=== PATIENT | male | born 1940 | race Caucasian/White ===

== ENCOUNTER 2018-02-20 09:49 | Emergency (ER) | payer MEDICARE ==
[2018-02-20] MEDS ORDERED: predniSONE 20 MG TAB ONE (10:40)
[2018-02-20] MEDS ORDERED: diphenhydrAMINE 50 MG/ML VIAL ONE (10:41)
[2018-02-20] MEDS ORDERED: Famotidine 20 MG TAB ONE (10:41)
== END 2018-02-20 11:45 | disposition home or self-care (01) ==
LOC: ERS 09:49
DX: T78.40XA Allergy, unspecified, initial encounter (principal); I25.2 Old myocardial infarction; Z79.899 Other long term (current) drug therapy; Z79.82 Long term (current) use of aspirin; Z79.84 Long term (current) use of oral hypoglycemic drugs
CPT/HCPCS: 96372; J1200; J7506

== ENCOUNTER 2018-08-29 17:13 | Inpatient (IN) | payer MEDICARE ==
[2018-08-29 19:01] LABS: #Basophils 0.1 thou/uL (0.0-0.2); #Eosinphils 0.1 thou/uL (0.0-0.7); #Lymphocytes 1.3 thou/uL (1.20-3.40); #Monocytes 0.8 thou/uL (0.11-0.59); #Neutrophils 14.6 thou/uL (1.40-6.50); %Basophils 0.4 % (0.0-1.0); %Eosinophils 0.4 % (0.0-10.0); %Lymphocytes 7.6 % (21.0-51.0); %Monocytes 4.7 % (0.0-10.0); %Neutrophils 86.9 % (42.0-75.0); Hemoglobin 14.5 g/dL (14.0-18.0); Mean Corpuscular HGB CONC 33.3 g/dL (32.0-36.0); Mean Corpuscular Hemoglobin 33.3 pg (27.0-31.0); Mean Corpuscular Volume 99.9 fL (78.0-98.0); Mean Platelet Volume 8.2 fL (7.4-10.4); Platelet Count 154 thou/uL (130-400); RBC Distribution Width 12.1 % (11.5-14.5); Red Blood Cell (RBC) Count 4.35 mill/uL (4.70-6.10); White Blood Cell (WBC) Count 16.8 thou/uL (4.8-10.8)
--- NOTE | 2018-08-29 19:02 | RAD ---
RIGHT HIP TWO VIEW 08/29/18 HISTORY: Pain. Fall. COMPARISON: None. FINDINGS: There appears to be a fracture through the iliac wing. There appears to be a transversely oriented fr acture through the acetabulum. Dense vascular calcifications. IMPRESSION: Fracture of the right iliac wing through the acetabulum. CT may be beneficial to evaluate the columns involved. POS: [facility]
--- NOTE | 2018-08-29 19:04 | RAD ---
PELVIS ONE VIEW: 08/29/18 HISTORY: Pain. COMPARISON: None. FINDINGS: There is a fracture of the acetabulum. There is possibly a fracture of the right inferior pubic shabbir s and superior pubic ramus. A fracture through the right iliac wing is present. IMPRESSION: Likely a both column right hip fracture vs anterior column posterior hemitransverse. POS: [facility]
--- NOTE | 2018-08-29 19:42 | RAD ---
CHEST ONE VIEW 08/29/18 HISTORY: Preop. COMPARISON: Radiograph 07/10/10. FINDINGS: Lungs are clear. No pneumothorax or effusion. The cardiac silhouette and mediastinal contours are sim ilar. Single lead defibrillator is in place. IMPRESSION: No acute intrathoracic abnormality. Bilateral rotator cuff arthropathy. POS: [facility]
[2018-08-29 19:48] LABS: ALT (SGPT) 21 U/L (8-55); AST (SGOT) 29 U/L (5-34); Albumin 4.2 g/dL (3.4-4.8); Alkaline Phosphatase 76 U/L (40-150); Anion Gap 14 mmol/L (10-20); BUN (Urea Nitrogen) 21 mg/dL (8.4-25.7); Bilirubin, Total 1.2 mg/dL (0.2-1.2); Calc. Creatinine Clearance 0 mL/min (70-130); Calcium 10.2 mg/dL (7.8-10.44); Carbon Dioxide 26 mmol/L (23-31); Chloride 101 mmol/L (98-107); Estimated GFR-MDRD 46; Globulin 3.1 g/dL (2.4-3.5); Glucose 169 mg/dL (83-110); Potassium 4.3 mmol/L (3.5-5.1); Protein, Total 7.3 g/dL (5.8-8.1); Sodium 137 mmol/L (136-145)
[2018-08-29] MEDS ORDERED: hydrALAZINE 20 MG/ML VIAL SLOW IVP PRN (20:38)
[2018-08-29] MEDS ORDERED: Dextrose 50% Abboject 50 ML SYRINGE SLOW IVP PRN (20:38)
[2018-08-29] MEDS ORDERED: Dextrose 5% in Water 1,000 ML IV PRN (20:38)
[2018-08-29] MEDS ORDERED: Ondansetron PF 4 MG/2 ML Vial IVP PRN (20:38)
[2018-08-29] MEDS ORDERED: Morphine 4 MG/ML VIAL SLOW IVP PRN ×2 (20:38)
[2018-08-29] MEDS ORDERED: Ondansetron ODT 4 MG TAB PO PRN (20:38)
[2018-08-29] MEDS ORDERED: Ibuprofen 200 MG TAB PO SCH (20:45)
[2018-08-29] MEDS ORDERED: traMADol HCl 50 MG TAB PO PRN (20:45)
[2018-08-29] MEDS ORDERED: traMADol HCl 50 MG TAB PO SCH (20:45)
[2018-08-29] MEDS ORDERED: Acetaminophen 500 MG TAB PO SCH (20:45)
--- NOTE | 2018-08-29 20:55 | CT ---
CT PELVIS WITHOUT CONTRAST: 08/29/18 HISTORY: Fall. Pain. COMPARISON: Radiograph same day. FINDINGS: Large right pelvic sidewall hematoma. The left obturator ring is intact. The right anterior SI joint has subtle widening. No crescent fracture of the ileum. The sacrum is without fracture. No diastasis of the pubic symphysis. There is severe degenerative disc space narrowing at L5-S1. There is a fracture of the right acetabul um seen to the anterior column with a posterior hemitransverse component. Fracture extends from the r ight pubic root to the right inferior pubic ramus. The right inferior pubic ramus fracture is a segme ntal fracture. No femoral head fracture, femoral neck fracture or intertrochanteric fracture. There is a small fract ure fragment on the posterior inferior acetabulum near the inferior transverse ligament. IMPRESSION: 1. Right anterior column and posterior hemitransverse acetabular fracture with right superior pu bic root fracture and a segmental right inferior pubic ramus fracture which is nondisplaced. Large p elvic sidewall hematoma on the right. 2. Very subtle widening of the anterior right SI joint superiorly. No crescent fracture of the i leum. POS: [facility]
[2018-08-29] MEDS ORDERED: Ibuprofen 200 MG TAB ONE (21:24)
[2018-08-29] MEDS ORDERED: traMADol HCl 50 MG TAB ONE (21:24)
[2018-08-29] MEDS ORDERED: Famotidine 20 MG TAB ONE (21:24)
[2018-08-29 21:28] LABS: Phosphorus 2.8 mg/dL (2.3-4.7)
[2018-08-29] MEDS: Famotidine 20 MG TAB PO SCH (22:37)
[2018-08-29] MEDS: Senokot S 8.6-50 MG TAB PO SCH (22:38)
[2018-08-29 22:45] VITALS: BMI 25.1
[2018-08-30] MEDS ORDERED: Sodium Chloride 0.9% 1,000 ML IV SCH ×2 (00:01→08:19)
--- NOTE | 2018-08-30 00:25 | HP ---
REQUESTING PHYSICIAN: Dr. Arzate. CONSULT: Orthopedic Surgery, Dr. Gloria. 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 The patient denies any dizziness, chest pain , shortness of breath prior to incident. The patient also denies hitting his head or losing consciousness. The patient states his only pain is right hip pain and sustained abrasion to the right knee and right elbow. The patient and his family reports that he is very active and has not had any recent illnesses. The patient denies any recent cough, cold, chills, or fevers. The patient presented to the emergency room and was found to have a right iliac wing fracture and acetabular fracture with possible pubic ramus fracture. Orthopedics was also consulted and recommended a CT of the pelvis and plan to take the patient to the OR tomorrow morning. PAST MEDICAL HISTORY: Type 2 diabetes, myocardial infarction, coronary artery disease. PAST SURGICAL HISTORY: Right ankle repair, single lead pacemaker, and defibrillator. SOCIAL HISTORY: Denies alcohol use, denies drug use, denies history of smoking. The patient lives at home with his . ALLERGIES: PENICILLIN AND CLINDAMYCIN. REVIEW OF SYSTEMS: A 10-point review of systems is negative unless otherwise stated in the above HPI. PHYSICAL EXAMINATION: VITAL SIGNS: Blood pressure 175/92, pulse 72, respirations 16, temperature 98.9 , and SpO2 97% on room air. GENERAL: The patient is awake, alert, in no distress, lying supine in the emergency room bed. HEENT: Head is normocephalic and atraumatic. Pupils are equal and reactive at 3 mm bilateral. NECK: With normal range of motion, no JVD, trachea midline. HEART: Regular rate and rhythm, 3/5 systolic murmur. No pedal edema. LUNGS: Chest is symmetrical, no wheezing, rales, or rhonchi. No respiratory distress. Equal and clear breath sounds bilaterally. ABDOMEN: Soft, nontender, nondistended, positive bowel sounds. MUSCULOSKELETAL: Strength 5/5 in all extremities, neurovascularly intact x4. Abrasion on right knee. Abrasion on right elbow. Normal range of motion. 2+ pedal pulses bilateral. NEUROLOGIC: The patient is awake, alert, oriented to person, place, time, and event. GCS 15. LABORATORY DATA: WBC 16.8, RBC 4.35, hemoglobin 14.5, hematocrit 43.5, and platelets 154. Sodium 137, potassium 4.3, chloride 101, CO2 of 26, BUN 21, creatinine 1.48, estimated GFR 46, and glucose 169. Calcium 10.2. Total bilirubin 1.2, AST 29, ALT 21, alkaline phosphatase 76. Troponin less than 0.010. Total protein 7.3, albumin 4.2. DIAGNOSTICS: A 12-lead EKG, normal sinus rhythm. No ST-segment changes. Normal axis. Possible left atrial enlargement. Pelvis x-ray, impression; fracture of acetabulum and possible fracture of right superior and inferior pubic rami. Hip film, fracture of right iliac wing. Chest x-ray, impression; no acute intrathoracic abnormality. IMPRESSION: 1. Mechanical fall from approximately 2 to 3 feet high. 2. Right iliac wing fracture. 3. Right acetabular fracture. 4. History of coronary artery disease. 5. History of diabetes mellitus. PLAN: We will admit the patient to surgical ortho floor. The patient will be on bedrest overnight. The patient will be n.p.o. after midnight. The plan is for Dr. Gloria to take the patient to the OR for repair of pelvic fracture in the morning. We will discontinue the patient's metformin and place the patient on a mild sliding scale. We will place the patient on a pain regimen and bowel regimen. We will also place a PT/OT consult for tomorrow after surgery. We will also place on rehab screen. The plan has been discussed with Dr. Stephens. Job ID: [id number] [facility]
[2018-08-30] MEDS: traMADol HCl 50 MG TAB PO SCH ×4 (03:47→22:03)
[2018-08-30] MEDS: Ibuprofen 200 MG TAB PO SCH ×3 (03:48→22:04)
[2018-08-30] MEDS: Acetaminophen 500 MG TAB PO SCH ×4 (03:48→22:04)
[2018-08-30 05:46] LABS: #Basophils 0.1 thou/uL (0.0-0.2); #Eosinphils 0.3 thou/uL (0.0-0.7); #Lymphocytes 2.3 thou/uL (1.20-3.40); #Monocytes 1.2 thou/uL (0.11-0.59); #Neutrophils 6.8 thou/uL (1.40-6.50); %Basophils 0.8 % (0.0-1.0); %Eosinophils 2.7 % (0.0-10.0); %Lymphocytes 21.5 % (21.0-51.0); %Monocytes 11.1 % (0.0-10.0); %Neutrophils 63.8 % (42.0-75.0); Hemoglobin 12.6 g/dL (14.0-18.0); Mean Corpuscular HGB CONC 34.2 g/dL (32.0-36.0); Mean Corpuscular Hemoglobin 34.2 pg (27.0-31.0); Mean Corpuscular Volume 99.9 fL (78.0-98.0); Mean Platelet Volume 8.1 fL (7.4-10.4); Platelet Count 117 thou/uL (130-400); Platelet Morphology Comment Appears Decreased; Red Blood Cell (RBC) Count 3.69 mill/uL (4.70-6.10); White Blood Cell (WBC) Count 10.6 thou/uL (4.8-10.8)
[2018-08-30 05:51] LABS: ALT (SGPT) 17 U/L (8-55); AST (SGOT) 21 U/L (5-34); Albumin 3.5 g/dL (3.4-4.8); Alkaline Phosphatase 56 U/L (40-150); Anion Gap 11 mmol/L (10-20); BUN (Urea Nitrogen) 20 mg/dL (8.4-25.7); Bilirubin, Total 1.3 mg/dL (0.2-1.2); Calc. Creatinine Clearance 51 mL/min (70-130); Calcium 9.1 mg/dL (7.8-10.44); Carbon Dioxide 27 mmol/L (23-31); Chloride 100 mmol/L (98-107); Estimated GFR-MDRD 54; Globulin 2.4 g/dL (2.4-3.5); Glucose 124 mg/dL (83-110); Magnesium 1.6 mg/dL (1.6-2.6); Phosphorus 3.6 mg/dL (2.3-4.7); Potassium 3.9 mmol/L (3.5-5.1); Protein, Total 5.9 g/dL (5.8-8.1); Sodium 134 mmol/L (136-145)
[2018-08-30] MEDS ORDERED: Potassium Phosphate 15 MMOL in Sodium Chloride 0.9% 250 ML 250 ML IVPB SCH (07:00)
[2018-08-30] MEDS ORDERED: Magnesium 2 GM/50 ML 2 GM in Premix Bag 1 BAG IVPB SCH (07:00)
[2018-08-30] MEDS: Senokot S 8.6-50 MG TAB PO SCH ×2 (09:54→22:03)
[2018-08-30] MEDS: Famotidine 20 MG TAB PO SCH ×2 (09:55→22:04)
[2018-08-30] MEDS: Polyethylene Glycol 3350 17 GM Packet PO SCH ×2 (09:55→10:02)
[2018-08-30] MEDS ORDERED: Carvedilol 3.125 MG TAB PO SCH (10:15)
[2018-08-30] MEDS ORDERED: Potassium Chloride 10 MEQ TAB PO SCH (10:15)
--- NOTE | 2018-08-30 10:15 | PRG ---
DATE OF SERVICE: 08/30/2018 SUBJECTIVE: The patient was seen this morning, sitting up in bed with no acute signs of distress. He reports that Dr. Gloria with Orthopedic surgery had recently come to see the patient and reported he was non OP management. He reports pain is well controlled and he is voiding without difficulties. Denies nausea, vomiting, and diarrhea. He has not yet worked with Physical or Occupational Therapy. He has no other complaints at this time. OBJECTIVE: VITAL SIGNS: Temperature 97.6, pulse 70, respirations 16, oxygen saturation 95% on room air, blood pressure 117/73. GENERAL: Well-appearing elderly male sitting up in bed with no signs of acute distress. PULMONARY: Equal chest rise and fall. Clear breath sounds bilaterally. No signs of acute respiratory distress. CARDIAC: Regular rate and rhythm. No murmurs, gallops, rubs. GI: Abdomen is soft, nontender, nondistended. EXTREMITIES: 2+ pulses in all extremities. No significant swelling noted. Gross motor and sensation intact times all 4 extremities. LABORATORY FINDINGS: White count 10.6, hemoglobin 12.6, hematocrit 36.9, platelets 117. Sodium 134, potassium 3.9, chloride 100, carbon dioxide 27, BUN 20, creatinine 1.28, glucose 124, phos 3.6, magnesium 1.6. DIAGNOSTIC FINDINGS: There are no new diagnostic findings to report. ASSESSMENT: 1. Status post mechanical fall off a trailer. 2. Right iliac wing fracture. 3. Right acetabular fracture. 4. Acute traumatic pain. 5. History of diabetes. 6. Myocardial infarction, status post coronary artery bypass grafting. 7. Coronary artery disease. 8. Pacemaker and defibrillator placement. PLAN: The patient is non-operative from Ortho. He is to work with physical and occupational therapy today and he is nonweightbearing on the right lower extremity and will likely need placement in acute rehab. The patient is amenable to this. We will stop IV fluids today and he will receive a diabetic diet. Lovenox will be started tomorrow. We will start on home medications today, but we will hold lisinopril and we will start home Lasix tomorrow, which he receives every other day. We have restarted carvedilol with hold parameters. The patient will be ready for discharge when he is tolerating a diet, urinating without difficulty, able to work with Physical therapy. He will likely need to go to rehab. Job ID: [id number]
--- NOTE | 2018-08-30 12:42 | CON ---
DATE OF CONSULTATION: CHIEF COMPLAINT: Right hip pain. HISTORY OF PRESENT ILLNESS: Mr. Pastor is a 78-year-old male, who was injured yesterday. 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 He lost his balance, falling several feet off the trailer, landing on his right side. He had immediate pain in the hip. He was able to arise using the trailer for support. He ambulated a small amount, but had extensive pain in the hip and was unable to continue on. He was taken to the emergency department. He was found to have a right acetabular fracture with iliac wing fracture. He has been admitted overnight. He has had pain control. CT scan has been completed. He is n.p.o. currently. PAST MEDICAL HISTORY: Coronary artery disease, type 2 diabetes, history of myocardial infarction. PAST SURGICAL HISTORY: Pacemaker placement and defibrillator placement as well as coronary artery bypass graft and also ankle fracture repair. SOCIAL HISTORY: The patient denies tobacco, alcohol, or drug use. He lives independently with his . ALLERGIES: TO PENICILLIN AND CLINDAMYCIN. REVIEW OF SYSTEMS: Positive for right hip pain. Otherwise, negative 10-point review of systems. IMAGES: X-rays of the right hip as well as CT scan are reviewed. These demonstrate an anterior column acetabulum fracture with extension into the iliac wing. There is essentially no displacement of the acetabular component, very slight displacement of the iliac wing. This is a complex fracture pattern. PHYSICAL EXAMINATION: VITAL SIGNS: Temperature is 97.6, pulse is 70, respiratory rate is 16, oxygen saturation 95%, blood pressure 117/73. GENERAL: He is alert and oriented, in no apparent distress. RESPIRATORY: Breathing comfortably. HEENT: Normocephalic and atraumatic. ABDOMEN: Soft, nontender, nondistended. MUSCULOSKELETAL: The patient has a small abrasion of the right elbow and right knee. Otherwise, his skin is intact. He is able to flex and extend the foot and ankle. He has a palpable dorsalis pedis pulse. He does have pain with hip motion which is limited. Equal leg lengths. IMPRESSION: Right acetabular fracture, anterior column. This is nondisplaced. PLAN: At this point, I think the patient will best be treated with nonoperative care. He can mobilize with the physical therapist, toe-touch weightbearing on the right leg. He should have pain control as well as DVT prophylaxis. He will need placement and would like to go to a [facility] swing bed if possible. I would like to re-x-ray his pelvis in 1 week to ensure that he has had no further change in alignment or significant displacement. This could be done as an outpatient. Job ID: [id number]
[2018-08-30] MEDS: HumaLOG 300 UNITS/3 ML VIAL SC PRN (16:54)
[2018-08-30] MEDS: Atorvastatin Calcium 10 MG TAB PO SCH (22:04)
[2018-08-31] MEDS: traMADol HCl 50 MG TAB PO SCH (04:33)
[2018-08-31] MEDS: Acetaminophen 500 MG TAB PO SCH ×4 (04:34→22:14)
[2018-08-31] MEDS: Ibuprofen 200 MG TAB PO SCH ×3 (04:34→20:21)
[2018-08-31 05:02] LABS: #Basophils 0.1 thou/uL (0.0-0.2); #Eosinphils 0.5 thou/uL (0.0-0.7); #Lymphocytes 2.3 thou/uL (1.20-3.40); #Monocytes 0.9 thou/uL (0.11-0.59); #Neutrophils 6.1 thou/uL (1.40-6.50); %Basophils 0.5 % (0.0-1.0); %Eosinophils 4.9 % (0.0-10.0); %Lymphocytes 23.6 % (21.0-51.0); %Monocytes 9.3 % (0.0-10.0); %Neutrophils 61.8 % (42.0-75.0); Hemoglobin 12.3 g/dL (14.0-18.0); Mean Corpuscular HGB CONC 34.6 g/dL (32.0-36.0); Mean Corpuscular Hemoglobin 34.1 pg (27.0-31.0); Mean Corpuscular Volume 98.6 fL (78.0-98.0); Mean Platelet Volume 8.3 fL (7.4-10.4); Platelet Count 115 thou/uL (130-400); Red Blood Cell (RBC) Count 3.61 mill/uL (4.70-6.10); White Blood Cell (WBC) Count 9.9 thou/uL (4.8-10.8)
[2018-08-31 05:17] LABS: Anion Gap 11 mmol/L (10-20); BUN (Urea Nitrogen) 17 mg/dL (8.4-25.7); Calc. Creatinine Clearance 56 mL/min (70-130); Calcium 8.7 mg/dL (7.8-10.44); Carbon Dioxide 26 mmol/L (23-31); Chloride 103 mmol/L (98-107); Estimated GFR-MDRD 61; Glucose 110 mg/dL (83-110); Magnesium 1.9 mg/dL (1.6-2.6); Phosphorus 3.3 mg/dL (2.3-4.7); Sodium 136 mmol/L (136-145)
--- NOTE | 2018-08-31 09:43 | PRG ---
DATE OF SERVICE: 08/31/2018 SUBJECTIVE: The patient was seen this morning, sitting up in bed and in good spirits. He was getting ready to have his breakfast. He reported he slept well overnight and pain is well controlled. Tolerating his diet. Ambulated to and from the bathroom twice yesterday with physical therapy. Reported initially having more pain on first walking attempt, but that the pain has improved since that time. He was seen by Orthopedic Surgery today, who has requested additional x-rays of his pelvis for stability. He denies nausea, vomiting, or diarrhea. OBJECTIVE: VITAL SIGNS: Temperature 98.8, pulse 72, respirations 16, oxygen saturation 95% on room air, and blood pressure 137/76. GENERAL: Well-appearing male, sitting up in bed, having breakfast with no signs of acute distress. PULMONARY: Equal chest rise and fall. Clear breath sounds bilaterally. No signs of acute respiratory distress. CARDIAC: Regular rate and rhythm. No murmurs, gallops, or rubs. Gastrointestinal: Abdomen is soft, nontender, and nondistended. EXTREMITIES: 2+ pulses in all extremities. No significant swelling noted. Gross motor and sensation intact in all 4 extremities. LABORATORY FINDINGS: White count 9.9, hemoglobin 12.3, hematocrit 35.6, and platelets 115. Sodium 136, potassium 4.0, chloride 103, carbon dioxide 26, BUN 17, creatinine 1.16, glucose 110, phosphorus 3.3, and magnesium 1.8. DIAGNOSTIC FINDINGS: There are no new diagnostic findings to report. ASSESSMENT: 1. Status post mechanical fall off a trailer. 2. Right iliac wing fracture. 3. Right acetabular fracture. 4. Acute traumatic pain. 5. History of diabetes. 6. Myocardial infarction, status post bypass, status post coronary artery bypass grafting, coronary artery disease, pacemaker, and defibrillator placement. PLAN: The patient to have x-rays of the pelvis per the request of Orthopedic Surgery to check for stability. We will continue current pain regimen as well as diet. Restarted Lasix today as well as carvedilol. We will continue to hold lisinopril as the patient does not needed at this time with his current vital signs. We will also replace phosphorus today. He will continue to receive physical and occupational therapy and will likely need to go to a rehab facility. We will start working on placement at this time. The patient will be discussed with Dr. Leroy after this dictation. Job ID: [id number]
[2018-08-31] MEDS: Senokot S 8.6-50 MG TAB PO SCH ×2 (10:07→20:21)
[2018-08-31] MEDS: Polyethylene Glycol 3350 17 GM Packet PO SCH (10:07)
[2018-08-31] MEDS: Carvedilol 3.125 MG TAB PO SCH (10:08)
[2018-08-31] MEDS: Furosemide 20 MG TAB PO SCH (10:08)
[2018-08-31] MEDS: Famotidine 20 MG TAB PO SCH ×2 (10:08→20:21)
[2018-08-31] MEDS: Potassium Chloride 10 MEQ TAB PO SCH (10:09)
[2018-08-31] MEDS: traMADol HCl 50 MG TAB PO PRN ×2 (10:11→22:14)
[2018-08-31] MEDS: Enoxaparin Sodium 40 MG/0.4 ML SYRINGE SC SCH (10:15)
--- NOTE | 2018-08-31 11:07 | RAD ---
ONE VIEW PELVIS TWO VIEWS RIGHT HIP: HISTORY: Right acetabular fracture. COMPARISON: None. FINDINGS: Comminuted right acetabular fracture is noted. The fracture extends into the right iliac wing. Left bony pelvis is unremarkable. Symmetric appearance of the joint spaces. Contour of the femoral heads is maintained. TWO VIEWS RIGHT HIP: Right acetabular fracture. Contour of the right femoral head is maintained. IMPRESSION: Right acetabular and iliac wing fracture. POS: [facility]
[2018-08-31] MEDS: HumaLOG 300 UNITS/3 ML VIAL SC PRN (12:52)
[2018-08-31] MEDS: Atorvastatin Calcium 10 MG TAB PO SCH (20:21)
[2018-09-01] MEDS: Ibuprofen 200 MG TAB PO SCH ×3 (05:08→19:28)
[2018-09-01] MEDS: Acetaminophen 500 MG TAB PO SCH ×4 (05:08→21:03)
[2018-09-01 07:14] LABS: #Basophils 0.1 thou/uL (0.0-0.2); #Eosinphils 0.4 thou/uL (0.0-0.7); #Lymphocytes 2.1 thou/uL (1.20-3.40); #Monocytes 0.9 thou/uL (0.11-0.59); #Neutrophils 6.7 thou/uL (1.40-6.50); %Basophils 0.7 % (0.0-1.0); %Lymphocytes 20.5 % (21.0-51.0); %Monocytes 8.6 % (0.0-10.0); %Neutrophils 66.2 % (42.0-75.0); Hemoglobin 12.1 g/dL (14.0-18.0); Mean Corpuscular HGB CONC 33.3 g/dL (32.0-36.0); Mean Corpuscular Hemoglobin 33.8 pg (27.0-31.0); Mean Platelet Volume 8.4 fL (7.4-10.4); Platelet Count 117 thou/uL (130-400); RBC Distribution Width 12.2 % (11.5-14.5); Red Blood Cell (RBC) Count 3.58 mill/uL (4.70-6.10); White Blood Cell (WBC) Count 10.2 thou/uL (4.8-10.8)
[2018-09-01 07:15] LABS: Anion Gap 9 mmol/L (10-20); BUN (Urea Nitrogen) 15 mg/dL (8.4-25.7); Calc. Creatinine Clearance 55 mL/min (70-130); Calcium 8.5 mg/dL (7.8-10.44); Carbon Dioxide 25 mmol/L (23-31); Chloride 104 mmol/L (98-107); Estimated GFR-MDRD 58; Glucose 100 mg/dL (83-110); Potassium 4.2 mmol/L (3.5-5.1); Sodium 134 mmol/L (136-145)
[2018-09-01] MEDS ORDERED: Potassium Phosphate 15 MMOL in Sodium Chloride 0.9% 250 ML 250 ML IVPB SCH (09:00)
[2018-09-01] MEDS ORDERED: Sodium Phosphate 15 MMOL in Sodium Chloride 0.9% 250 ML 250 ML IVPB SCH (09:00)
[2018-09-01] MEDS: Lisinopril 2.5 MG TAB PO SCH ×2 (09:14→20:55)
[2018-09-01] MEDS: Potassium Chloride 10 MEQ TAB PO SCH (09:14)
[2018-09-01] MEDS: Famotidine 20 MG TAB PO SCH ×2 (09:14→20:56)
[2018-09-01] MEDS: Carvedilol 3.125 MG TAB PO SCH (09:14)
[2018-09-01] MEDS: traMADol HCl 50 MG TAB PO PRN ×2 (09:15→19:29)
[2018-09-01] MEDS: Enoxaparin Sodium 40 MG/0.4 ML SYRINGE SC SCH (09:15)
[2018-09-01] MEDS: Senokot S 8.6-50 MG TAB PO SCH ×2 (09:21→20:56)
[2018-09-01] MEDS: Polyethylene Glycol 3350 17 GM Packet PO SCH (09:21)
--- NOTE | 2018-09-01 09:53 | PRG ---
DATE OF SERVICE: 09/01/2018 SUBJECTIVE: The patient was seen this morning sitting up in bed with no signs of acute distress. He reported sleeping well overnight, pain is well controlled. He only has pain whenever he gets up and walks around, but it is not limiting his mobility. He is tolerating his diabetic diet. Denies nausea, vomiting, or diarrhea. Working with Physical Therapy regularly. OBJECTIVE: VITAL SIGNS: Temperature 97.6, pulse 75, respirations 16, oxygen saturation 95% on room air, and blood pressure 157/90. GENERAL: Well-appearing male, sitting up in bed with no signs of acute distress. PULMONARY: Equal chest rise and fall. Clear breath sounds bilaterally. No signs of acute respiratory distress. CARDIAC: Regular rate and rhythm. No murmurs, gallops, or rubs. GI: Abdomen is soft, nontender, and nondistended. EXTREMITIES: 2+ pulses in all extremities. No significant swelling noted. Gross motor and sensation are intact in all 4 extremities. LABORATORY FINDINGS: White count 10.2, hemoglobin 12.1, hematocrit 36.2, and platelets 117. Sodium 134, potassium 4.2, chloride 104, carbon dioxide 25, BUN is 15, creatinine 1.2, glucose is 100, phosphorus is 3.0, and magnesium is 2.0. DIAGNOSTIC FINDINGS: X-ray of the pelvis completed yesterday post ambulation demonstrated a right acetabular and iliac wing fracture. ASSESSMENT: 1. Status post mechanical fall off a trailer. 2. Right iliac wing fracture. 3. Right acetabular fracture. 4. Acute traumatic pain. 5. History of diabetes, myocardial infarction, status post bypass, coronary artery disease, pacemaker and defibrillator, and hypertension. PLAN: We will restart the patient's home lisinopril today for better blood pressure control. Also, we are going to replace phosphorus. He will continue to receive supportive care with Physical and Occupational Therapy. He is ready for discharge at this time. We are pending placement. The patient will be discussed with Dr. Leroy this morning after this dictation. Job ID: [id number]
[2018-09-01] MEDS: Atorvastatin Calcium 10 MG TAB PO SCH (20:55)
[2018-09-02] MEDS: Acetaminophen 500 MG TAB PO SCH ×3 (04:22→16:08)
[2018-09-02] MEDS: Ibuprofen 200 MG TAB PO SCH ×2 (04:22→12:07)
[2018-09-02] MEDS: traMADol HCl 50 MG TAB PO PRN ×3 (04:24→16:08)
[2018-09-02 07:02] LABS: #Basophils 0.1 thou/uL (0.0-0.2); #Eosinphils 0.4 thou/uL (0.0-0.7); #Neutrophils 5.8 thou/uL (1.40-6.50); %Basophils 0.8 % (0.0-1.0); %Eosinophils 4.6 % (0.0-10.0); %Lymphocytes 21.7 % (21.0-51.0); %Monocytes 10.5 % (0.0-10.0); %Neutrophils 62.4 % (42.0-75.0); Hemoglobin 12.3 g/dL (14.0-18.0); Mean Corpuscular HGB CONC 33.9 g/dL (32.0-36.0); Mean Platelet Volume 8.7 fL (7.4-10.4); Platelet Count 125 thou/uL (130-400); RBC Distribution Width 12.2 % (11.5-14.5); Red Blood Cell (RBC) Count 3.61 mill/uL (4.70-6.10); White Blood Cell (WBC) Count 9.4 thou/uL (4.8-10.8)
[2018-09-02 07:11] LABS: Anion Gap 10 mmol/L (10-20); BUN (Urea Nitrogen) 14 mg/dL (8.4-25.7); Calc. Creatinine Clearance 62 mL/min (70-130); Calcium 8.6 mg/dL (7.8-10.44); Carbon Dioxide 25 mmol/L (23-31); Chloride 104 mmol/L (98-107); Estimated GFR-MDRD 68; Glucose 110 mg/dL (83-110); Magnesium 1.7 mg/dL (1.6-2.6); Phosphorus 3.2 mg/dL (2.3-4.7); Potassium 3.9 mmol/L (3.5-5.1); Sodium 135 mmol/L (136-145)
[2018-09-02] MEDS ORDERED: Magnesium 2 GM/50 ML 2 GM in Premix Bag 1 BAG IVPB SCH (08:00)
[2018-09-02] MEDS ORDERED: Potassium Phosphate 15 MMOL in Sodium Chloride 0.9% 250 ML 250 ML IVPB SCH (08:00)
[2018-09-02] MEDS: Polyethylene Glycol 3350 17 GM Packet PO SCH (10:16)
[2018-09-02] MEDS: Senokot S 8.6-50 MG TAB PO SCH (10:17)
[2018-09-02] MEDS: Enoxaparin Sodium 40 MG/0.4 ML SYRINGE SC SCH (10:24)
[2018-09-02] MEDS: Furosemide 20 MG TAB PO SCH (10:25)
[2018-09-02] MEDS: Lisinopril 2.5 MG TAB PO SCH (10:25)
[2018-09-02] MEDS: Carvedilol 3.125 MG TAB PO SCH (10:25)
[2018-09-02] MEDS: Potassium Chloride 10 MEQ TAB PO SCH (10:25)
[2018-09-02] MEDS: Famotidine 20 MG TAB PO SCH (10:28)
--- NOTE | 2018-09-02 12:46 | PRG ---
DATE OF SERVICE: 09/02/2018 SUBJECTIVE: The patient was seen this morning sitting up in bed with no signs of acute distress. Reported pain was well controlled. He slept well overnight, having regular bowel movements. Ambulating with a walker. Denies nausea, vomiting, and diarrhea. OBJECTIVE: VITAL SIGNS: Temperature 97.7, pulse 75, respirations 14, oxygen saturation 96% on room air, blood pressure 157/82. GENERAL: Well-appearing elderly male, sitting up in bed with no signs of acute distress. PULMONARY: Equal chest rise and fall. Clear breath sounds bilaterally. No signs of acute respiratory distress. CARDIAC: Regular rate and rhythm. No murmurs, gallops, or rubs. GI: Abdomen is soft, nontender, nondistended. EXTREMITIES: 2+ pulses in all extremities. No significant swelling noted. Gross motor and sensation intact x4 extremities. NEURO: GCS is 15. Motor and sensation intact in all extremities. LABORATORY FINDINGS: White count 9.4, hemoglobin 12.3, hematocrit 36.2, platelets 125. Sodium 135, potassium 3.9, chloride 104, carbon dioxide 25, BUN 14, creatinine 1.05, glucose 100, phos 3.2, magnesium 1.7. DIAGNOSTIC FINDINGS: There are no new diagnostic findings to report. ASSESSMENT: 1. Status post mechanical fall from a trailer. 2. Right iliac wing fracture. 3. Right acetabular fracture. 4. Acute traumatic pain. 5. History of diabetes; myocardial infarction, status post bypass; chronic artery disease, pacemaker defibrillator; and hypertension. PLAN: We will continue to provide supportive care as well as replace phosphorus and magnesium. Will continue to receive physical and occupational therapy. He is pending an open bed at his facility of choice. Otherwise, he is ready for discharge. The patient was seen and examined with Dr. Leroy this morning during rounds. Job ID: [id number]
[2018-09-02 16:02] VITALS: BP 130/79; TEMP 98
--- NOTE | 2018-09-03 03:47 | DIS ---
DATE OF ADMISSION: 08/29/2018 DATE OF DISCHARGE: 09/02/2018 ADMISSION DIAGNOSIS: Status post mechanical fall off trailer, right iliac wing fracture and right acetabular fracture. DISCHARGE DIAGNOSIS: Status post mechanical fall off trailer, right iliac wing fracture and right acetabular fracture. CONSULTING PHYSICIAN: Dr. Gloria. PROCEDURES: None. HOSPITAL COURSE: The patient is a 78-year-old male who reported falling off a trailer, no syncope reported. He has a history of diabetes, has had GA with CABG, CAD, pacemaker, defibrillator, and hypertension. He was found to have a right iliac wing fracture and a right acetabular fracture. He was admitted for pain control and rehab placement. Orthopedic Surgery, Dr. Gloria was consulted, who recommended nonoperative management and toe-touch weightbearing to the right lower extremity. He worked with Physical and Occupational Therapy and received post ambulation x-rays, which demonstrated stable fractures. At the time of discharge, the patient's pain was well controlled. He was tolerating a diabetic diet. He was urinating without difficulties and he was having regular bowel movements. All of his home medications were restarted at the time of discharge. He denied nausea, vomiting, and diarrhea. DISCHARGE DISPOSITION: Swing bed SNF. DISCHARGE CONDITION: Satisfactory. PHYSICAL EXAMINATION: GENERAL: Well-appearing elderly male, sitting up in bed with no signs of acute distress. PULMONARY: Equal chest rise and fall. Clear breath sounds bilaterally. No signs of significant respiratory distress GI: Abdomen is soft, nontender, nondistended. PELVIS: Stable to manipulation. Mildly tender. EXTREMITIES: Gross motor and sensation intact in all 4 extremities. No significant swelling noted. 2+ pulses in all extremities. DISCHARGE INSTRUCTIONS: The patient is toe-touch weightbearing to the right lower extremity. Activity with assistance and walker. He has a regular diet and was discharged with pain medications as well as restarting all of his home medications. He is to receive physical and occupational therapy at rehab. DISCHARGE MEDICATIONS: His medications include; 1. Tylenol. 2. Lipitor. 3. Carvedilol. 4. Pepcid. 5. Lasix. 6. Ibuprofen. 7. Lisinopril. 8. Pantoprazole. 9. MiraLAX. 10. Potassium chloride. 11. Senokot S. 12. Tramadol. 13. Aspirin. 14. Glipizide. 15. Metformin. FOLLOWUP APPOINTMENTS: Follow up in [address] Gloria. No need for followup with Dr. Leroy. This is merely a summary of the patient's hospitalization. For full details, please see his medical record in its entirety. Job ID: [id number]
== END 2018-09-02 16:44 | DRG 536 ==
LOC: ERS 17:13 → SURG B 22:00
PROVIDERS: ADMIT Specialist; ATTEND Specialist
DX: S32.434A Nondisplaced fracture of anterior column [iliopubic] of right acetabulum, initial encounter for closed fracture (principal); S32.311A Displaced avulsion fracture of right ilium, initial encounter for closed fracture; S80.211A Abrasion, right knee, initial encounter; S50.311A Abrasion of right elbow, initial encounter; E11.9 Type 2 diabetes mellitus without complications; I25.2 Old myocardial infarction; I25.10 Atherosclerotic heart disease of native coronary artery without angina pectoris; Z95.810 Presence of automatic (implantable) cardiac defibrillator; Z88.0 Allergy status to penicillin; Z88.1 Allergy status to other antibiotic agents; Z79.84 Long term (current) use of oral hypoglycemic drugs; Z95.1 Presence of aortocoronary bypass graft; W17.89XA Other fall from one level to another, initial encounter; Z79.82 Long term (current) use of aspirin
CPT/HCPCS: 36415; 36416; 71045; 72170; 72190; 72192; 80048; 80053; 83735; 84100; 84484; 85025; 86850; 86900; 86901; 93005; J1650; J3475; J7050

== ENCOUNTER 2023-04-22 10:29 | Emergency (ER) | payer MEDICARE ==
[2023-04-22] MEDS ORDERED: Iopamidol-370 76% 500 ML MDV (1 ML CHARGE) ONE (10:36)
[2023-04-22] MEDS ORDERED: Ondansetron PF 4 MG/2 ML Vial ONE (11:19)
[2023-04-22 11:48] LABS: #Eosinphils 0.1 thou/uL (0.0-0.7); #Monocytes 0.8 thou/uL (0.11-0.59); #Neutrophils 9.2 thou/uL (1.40-6.50); %Basophils 0.3 % (0.0-1.0); %Eosinophils 0.5 % (0.0-10.0); %Lymphocytes 9.9 % (21.0-51.0); %Monocytes 6.9 % (0.0-10.0); Hematocrit 42.8 % (42.0-52.0); Hemoglobin 15.2 g/dL (14.0-18.0); Mean Corpuscular HGB CONC 35.5 g/dL (32.0-36.0); Mean Corpuscular Hemoglobin 34.2 pg (27.0-31.0); Mean Corpuscular Volume 96.2 fl (78.0-98.0); Mean Platelet Volume 10.9 fL (7.4-10.4); Platelet Count 135 10x3/uL (130-400); RBC Distribution Width 12.4 % (11.5-14.5); Red Blood Cell (RBC) Count 4.45 mill/uL (4.70-6.10); White Blood Cell (WBC) Count 11.3 10x3/uL (4.8-10.8)
[2023-04-22 11:55] LABS: Bilirubin Negative (Negative); Blood, Urine Negative (Negative); Clarity Clear (Clear); Glucose, Urine (Dipstick) Normal (Negative); Ketone, Urine Trace mg/dL (Negative); Leukocyte Negative Leu/uL (Negative); Nitrite Negative (Negative); Protein, Urine (Dipstick) 50 mg/dL (Neg-Trace); Specific Gravity, Urine 1.012 (1.002-1.036); Urobilinogen Normal mg/dL (Less than 2)
[2023-04-22 12:06] LABS: CAUTI Indications for Culture Dysuria,urgency,freq; RBC/HPF None Seen HPF (0-3); Squamous Epithelial 0-3 HPF (0-3); WBC/HPF None Seen HPF (0-3)
[2023-04-22 12:06] LABS: ALT (SGPT) 27 U/L (8-55); AST (SGOT) 32 U/L (5-34); Albumin 4.3 g/dL (3.4-4.8); Alkaline Phosphatase 65 U/L (40-110); Anion Gap 13 mmol/L (10-20); BUN (Urea Nitrogen) 12 mg/dL (8.4-25.7); Bilirubin, Total 1.8 mg/dL (0.2-1.2); Calc. Creatinine Clearance 0 mL/min (70-130); Calcium 9.4 mg/dL (7.8-10.44); Carbon Dioxide 28 mmol/L (23-31); Chloride 95 mmol/L (98-107); Estimated GFR 58; Globulin 3.1 g/dL (2.4-3.5); Glucose 144 mg/dL (83-110); Lipase 29 U/L (8-78); Magnesium 1.9 mg/dL (1.6-2.6); Potassium 3.9 mmol/L (3.5-5.1); Protein, Total 7.4 g/dL (5.8-8.1); Sodium 132 mmol/L (136-145)
[2023-04-22 12:07] LABS: Urine Culture Reflex No No
== END 2023-04-22 15:39 | disposition home or self-care (01) ==
LOC: ERS 10:29
DX: R11.2 Nausea with vomiting, unspecified (principal); E11.9 Type 2 diabetes mellitus without complications; Z79.82 Long term (current) use of aspirin; Z79.84 Long term (current) use of oral hypoglycemic drugs
CPT/HCPCS: 74177; 76705; 80053; 81001; 83605; 83690; 83735; 85025; 93005; 96361; 96374; J2405; Q9967